=== PATIENT | female | born 1995 | race African-American/Black ===

== ENCOUNTER 2017-11-17 11:55 | Emergency (ER) | payer OTHER ==
--- OUTSIDE RECORDS SUMMARY | 2017-11-17 11:57 | XMS REPORT | Continuity of Care Document ---
:1995 Author Organization Interface Problems Problem Status Onset Classification Date Comments Source Date Reported Routine 10/03/2017 Medical screening for 8 Group STI Vaginal odor 10/03/2017 Medical 8 Group Medications Medication Details Route Status Patient Ordering Order Source Instructions Provider Date Bacitracin 0.4 1 appl, Active UNT/MG / Neomycin TOP, TID, # 018 Medical 0.0035 MG/MG / 10 gm, 0 Group Polymyxin B 5 Refill(s), UNT/MG Topical Pharmacy: Ointment [facility] #[id number] Metronidazole 500 500 mg=1 No Longer MG Oral Tablet tab, PO, Active 018 Medical BID, X 7 Group day, # 14 tab, 0 Refill(s), Pharmacy: [facility] #[id number] Levonorgestrel 52 mg=1 ea, Active 0.578451 MG/HR Intrauteral 018 Medical Drug Implant , ONCE, # 1 Group [Mirena] ea, 0 Refill(s) Allergies, Adverse Reactions, Alerts Substance Category Reaction Severity Reaction Status Date Comments Source type Reported NKDA<sup>1< Assertion Drug Active Data MH /sup> allergy 4 migrated Medical from [employer] on 06/09/15. Originally documented as NKA. Immunizations Immunization Date Given Site Status Last Updated Comments Source Results Order Results Value Reference Date Interpretation Comments Source Name Range Vital Signs Vital Sign Value Date Comments Source Height 166.37 cm 08/10/2017 Medical Group BMI Calculated 21.53 08/10/2017 Medical Group Weight 59.602 08/10/2017 Medical Group Heart Rate 71 08/10/2017 Medical Group Systolic (mm Hg) 109 08/10/2017 Medical Group Diastolic (mm Hg) 75 08/10/2017 Medical Group BMI Calculated 21.51 06/27/2017 Medical Group Height 165.1 cm 06/27/2017 Medical Group Systolic (mm Hg) 111 06/27/2017 Medical Group Diastolic (mm Hg) 73 06/27/2017 Medical Group Heart Rate 64 06/27/2017 Medical Group Weight 58.636 06/27/2017 Medical Group Encounters Location Location Encounter Encounter Reason Attending ADM DC Status Source Details Type Number For Provider Date Date Visit Outpatient [id number] ALEJANDRO 06/27 [facility] Outpatient [id number] Alejandro 06/27 06/28 staff counsel [facility] [place] [facility] [id number] [facility] 08/10 [facility] Outpatient [id number] Mundo 08/10 08/11 [facility] [place] Outpatient [id number] ALEJANDRO 09/07 [facility] Procedures Procedure Code Date Perfomer Comments Source
--- OUTSIDE RECORDS SUMMARY | 2017-11-17 11:57 | XMS REPORT | Summary of Care ---
:1995 Author Organization [facility] Primary [place] Address [address] [place] [address] Encounter HQ Jaguar(FIN) [id number] Date(s): 08/10/17 - 08/10/17 [facility] [place] [address] [place] [address] [phone] Discharge Disposition: Home or Self Care Attending Physician: Mundo Taylor MD Vital Signs Most recent to oldest [Reference Range]: 1 Height 166.37 cm (08/10/17 9:30 AM) Blood Pressure [90-140/60-90 mmHg] 109/75 mmHg (08/10/17 9:30 AM) Peripheral Pulse Rate [60-100 bpm] 71 bpm (08/10/17 9:30 AM) Weight 59.602 kg (08/10/17 9:30 AM) Body Mass Index 21.53 m2 (08/10/17 9:30 AM) Problem List No data available for this section Allergies, Adverse Reactions, Alerts Substance Reaction Severity Status NKDA1 Active 1Data migrated from [employer] on 06/09/15. Originally documented as NKA. Medications bacitracin/neomycin/polymyxin B topical ointment 1 appl, TOP, TID, # 10 gm, 0 Refill(s), Pharmacy: [facility] #[id number] Start Date: 08/10/17 Stop Date: 08/15/17 Status: Ordered Results No data available for this section Immunizations No data available for this section Procedures Procedure Date Related Diagnosis Body Site Status None Completed Social History Social History Type Response Substance Abuse Use: None. Sexual Sexually active: Yes. Self Breast Exam Yes. Alcohol Current Smoking Status Former smoker; Type: Cigarettes; Exposure to Tobacco Smoke None ; Cigarette Smoking Last 365 Days No; Reg Smoking Cessation Counseling No entered on: 08/10/17 Assessment and Plan No data available for this section
--- OUTSIDE RECORDS SUMMARY | 2017-11-17 11:58 | XMS REPORT | Summary of Care ---
:1995 Author Organization [facility] cad specialist [place] Address [address] [address] Encounter HQ Damiánr_dane(FIN) [id number] Date(s): 06/27/17 - 06/27/17 [facility] [place] [address] [address] [phone] Encounter Diagnosis Vaginal odor (Final) - 06/27/17 Encounter for well woman exam (Final) - 06/27/17 Routine screening for STI (sexually transmitted infection) (Final) - 06/27/17 Discharge Disposition: Home or Self Care Attending Physician: Ailyn Auguste MD Vital Signs Most recent to oldest [Reference Range]: 1 Height 165.1 cm (06/27/17 10:39 AM) Blood Pressure [90-140/60-90 mmHg] 111/73 mmHg (06/27/17 10:39 AM) Peripheral Pulse Rate [60-100 bpm] 64 bpm (06/27/17 10:39 AM) Weight 58.636 kg (06/27/17 10:39 AM) Body Mass Index 21.51 m2 (06/27/17 10:39 AM) Problem List No data available for this section Allergies, Adverse Reactions, Alerts Substance Reaction Severity Status NKDA1 Active 1Data migrated from [employer] on 06/09/15. Originally documented as NKA. Medications metroNIDAZOLE 500 mg oral tablet 500 mg=1 tab, PO, BID, X 7 day, # 14 tab, 0 Refill(s), Pharmacy: [facility] #[id number] Start Date: 06/28/17 Stop Date: 07/05/17 Status: CompletedMirena 52 mg intrauteral device 52 mg=1 ea, Intrauteral, ONCE, # 1 ea, 0 Refill(s) Start Date: 06/27/17 Status: Ordered Results No data available for [...]
[2017-11-17] MEDS ORDERED: LIDOCAINE 1% MPF 5 ML VIAL ONE (12:56)
[2017-11-17] MEDS ORDERED: TETANUS & DIPHTHERIA TOX,ADULT 0.5 ML VIAL ONE (13:11)
--- NOTE | 2017-11-17 13:32 | ER ---
Nurse's Notes [facility] Department Name: Shruthi Carter Age: 22 yrs Sex: Female : 1995 Arrival Date: 11/17/2017 Time: 12:00 Bed 14 Private MD: None, None Diagnosis: Laceration without foreign body of finger without damage to nail-Left Index Presentation: 11/17 12:29 Presenting complaint: Patient states: sliced left index finger while removing an dm5 avocado pit about 2.5 hours [employer] [employer]. Bleeding has stopped. Pt had a regular bandage on finger upon arrival to ED. laceration appears clean. Transition of care: patient was not received from another setting of care. Onset of symptoms was November 17, 2017. Risk Assessment: Do you want to hurt yourself or someone else? Patient reports no desire to harm self or others. Initial Sepsis Screen: Does the patient meet any 2 criteria? No. Patient's initial sepsis screen is negative. Does the patient have a suspected source of infection? No. Patient's initial sepsis screen is negative. Care prior to arrival: None. 12:29 Method Of Arrival: Ambulatory dm5 12:29 Acuity: ALLEGRA 4 dm5 Triage Assessment: 12:32 General: Appears in no apparent distress. Behavior is calm, cooperative. Pain: dm5 Complains of pain in palmar aspect of proximal phalanx of left index finger Pain currently is 0 out of 10 on a pain scale. Musculoskeletal: Capillary refill < 3 seconds. Injury Description: Laceration sustained to palmar aspect of proximal phalanx of left index finger is clean, 0.5 to 2.5 cm long, was sustained 2-4 hours ago. no active bleeding noted at this time. Historical: - Allergies: 12:32 No Known Allergies; dm5 - Home Meds: 12:32 None [Active]; dm5 - PMHx: 12:32 None; dm5 - PSHx: 12:32 None; dm5 - Immunization history:: Adult Immunizations up to date. - Social history:: Smoking status: Patient/guardian denies using tobacco. - Ebola Screening: : Patient negative for fever greater than or equal to 101.5 degrees Fahrenheit, and additional compatible Ebola Virus Disease symptoms Patient denies exposure to infectious person Patient denies travel to an Ebola-affected area in the 21 days before illness onset No symptoms or risks identified at this time. Screenin:11 Abuse screen: Denies threats or abuse. Nutritional screening: No deficits noted. em Tuberculosis screening: No symptoms or risk factors identified. Fall Risk None identified. Assessment: 12:40 General: Appears in no apparent distress. comfortable, Behavior is calm, cooperative, em Reports reports cutting finger about an hour ago, no bleeding noted. Pain: Denies pain. Pain:. Neuro: Level of Consciousness is awake, alert, obeys commands, Oriented to person, place, time. Cardiovascular: Capillary refill < 3 seconds Patient's skin is warm and dry. Respiratory: Airway is patent Respiratory effort is even, unlabored, Respiratory pattern is regular, symmetrical. GI: Abdomen is flat. Derm: Wound noted palmar aspect of proximal phalanx of left index finger. Musculoskeletal: Range of motion: intact in all extremities. Injury Description: Laceration sustained to palmar aspect of proximal phalanx of left index finger is clean, 0.5 to 2.5 cm long, not bleeding, was sustained 30-60 minutes ago. 12:50 Reassessment: Patient appears in no apparent distress at this time. I agree with above iw assessment by Vitaly Garg LVN. 13:50 Reassessment: Patient appears in no apparent distress at this time. Patient and/or em family updated on plan of care and expected duration. Pain level reassessed. Patient is alert, oriented x 3, equal unlabored respirations, skin warm/dry/pink. Patient denies pain at this time. Vital Signs: 12:40 BP 117 / 78; Pulse 69; Resp 18; Temp 98.1; Pulse Ox 99% on R/A; Weight 61.23 kg; Height em 5 ft. 7 in. (170.18 cm); Pain 0/10; 12:40 Body Mass Index 21.14 (61.23 kg, 170.18 cm) em ED Course: 12:00 Patient arrived in ED. mr 12:00 None, None is Private Physician. mr 12:21 Steve Rogers MD is Attending Physician. kdr 12:30 Pool Pepe PA is PHCP. cp 12:32 Triage completed. dm5 12:32 Arm band placed on left wrist. Patient placed in an exam room. dm5 12:41 Garg, Vitaly, MIRROR FABRICATION SUPERVISOR is Primary Nurse. em 13:03 Patient has correct armband on for positive identification. Bed in low position. Call 5 light in reach. Adult w/ patient. 13:04 Wound care: to laceration. [facility] 13:30 Assist provider with laceration repair that was 2.5 cm. or less using sutures. Set up em tray. Performed by Pool PEÑA Dressed with 4X4s, Neosporin, Patient tolerated well. 13:30 Patient did not have IV access during this emergency room visit. em Administered Medications: 13:15 Drug: Lidocaine (1 %) 5 ml {Note: administered by MARIANA Lanza.} Volume: 5 ml; Route: em Infiltration; Site: wound; 13:35 Drug: Tetanus-Diphtheria Toxoid Adult 0.5 ml {Train Controller: [employer]. Exp: em 01/04/2020. Lot #: [id number]. } Route: IM; Site: right deltoid; 14:14 Follow up: Response: No adverse reaction em Outcome: 13:32 Discharge ordered by . ramone 14:14 Discharged to home ambulatory, with family. em 14:14 Condition: good 14:14 Discharge instructions given to patient, family, Instructed on discharge instructions, follow up and referral plans. Demonstrated understanding of instructions, follow-up care. 14:15 Patient left the ED. em Signatures: Sandra Fischer, RN RN dm5 Steve Rogers MD MD kdr Rivera, Maria mr Munoz, Edgar, MIRROR FABRICATION SUPERVISOR MIRROR FABRICATION SUPERVISOR em Sammie Goodson RN RN iw Page, Corey, PA PA cp Martinez, Maria Svetlana
--- NOTE | 2017-11-17 13:32 | EDPHYS ---
Physician Documentation [facility] Name: Shruthi Carter Age: 22 yrs Sex: Female : 1995 Arrival Date: 11/17/2017 Time: 12:00 Bed 14 Private MD: None, None ED Physician Steve Rogers HPI: 11/17 12:45 This 22 yrs old Black Female presents to ER via Ambulatory with complaints of Finger cp Injury. 12:45 The patient or guardian reports a laceration, clean, simple. The complaints affect the cp palmar aspect of proximal phalanx of left index finger. 12:45 Context: resulted from using clean kitchen utensil. Onset: The symptoms/episode cp began/occurred just prior to arrival. Associated signs and symptoms: Pertinent negatives: cyanosis distally, numbness distally. Severity of symptoms: in the emergency department the symptoms are unchanged, despite home interventions. Historical: - Allergies: 12:32 No Known Allergies; dm5 - Home Meds: 12:32 None [Active]; dm5 - PMHx: 12:32 None; dm5 - PSHx: 12:32 None; dm5 - Immunization history:: Adult Immunizations up to date. - Social history:: Smoking status: Patient/guardian denies using tobacco. - Ebola Screening: : Patient negative for fever greater than or equal to 101.5 degrees Fahrenheit, and additional compatible Ebola Virus Disease symptoms Patient denies exposure to infectious person Patient denies travel to an Ebola-affected area in the 21 days before illness onset No symptoms or risks identified at this time. ROS: 12:48 Constitutional: Negative for body aches, chills, fever, poor PO intake. cp 12:48 Eyes: Negative for injury, pain, redness, and discharge. cp 12:48 ENT: Negative for drainage from ear(s), ear pain, sore throat, difficulty swallowing, difficulty handling secretions. 12:48 Cardiovascular: Negative for chest pain, palpitations. 12:48 Respiratory: Negative for cough, shortness of breath, wheezing. 12:48 Abdomen/GI: Negative for abdominal pain, nausea, vomiting, and diarrhea. 12:48 Skin: Positive for laceration(s), of the palmar aspect of proximal phalanx of left index finger, Negative for cellulitis, rash. 12:48 Neuro: Negative for numbness, tingling, weakness. 12:48 All other systems are negative. Exam: 12:55 Constitutional: The patient appears in no acute distress, alert, non-toxic, well cp developed, well nourished. 12:55 Head/Face: Normocephalic, atraumatic. cp 12:55 Eyes: Periorbital structures: appear normal, Conjunctiva: normal, no exudate, no injection, Lids and lashes: appear normal, bilaterally. 12:55 ENT: External ear(s): are unremarkable, Nose: is normal, Mouth: is normal, Posterior pharynx: is normal, airway is patent. 12:55 Chest/axilla: Inspection: normal. 12:55 Cardiovascular: Rate: normal, Rhythm: regular. 12:55 Respiratory: the patient does not display signs of respiratory distress, Respirations: normal, no use of accessory muscles, no retractions, no splinting, no tachypnea. 12:55 Abdomen/GI: Exam negative for discomfort, distension, guarding, Inspection: abdomen appears normal. 12:55 Musculoskeletal/extremity: ROM: full active range of motion, left index finger, Perfusion: the extremity is normally perfused throughout, Sensation intact. Tendon exam: specific tendon testing normal through active and passive range of motion 12:55 Skin: cellulitis, is not appreciated, injury, laceration(s), the wound is approximately 2 cm(s), of the palmar aspect of proximal phalanx of left index finger, that can be described as clean, linear, without bleeding, no rash present. Vital Signs: 12:40 BP 117 / 78; Pulse 69; Resp 18; Temp 98.1; Pulse Ox 99% on R/A; Weight 61.23 kg; Height em 5 ft. 7 in. (170.18 cm); Pain 0/10; 12:40 Body Mass Index 21.14 (61.23 kg, 170.18 cm) em Laceration: 13:28 Wound Repair of 2cm ( 0.8in ) subcutaneous laceration to palmar aspect of proximal cp phalanx of left index finger. Linear shaped.. Distal neuro/vascular/tendon intact. Anesthesia: Wound infiltrated with 2 mls of 1% lidocaine. Wound prep: Moderate cleansing by nurse, Wound irrigation with saline. Skin closed with 3 4-0 Prolene using interrupted sutures and sterile technique. Dressed with Bacitracin, tube gauze. Patient tolerated well. MDM: 12:30 Patient medically screened. cp 12:40 Differential diagnosis: open fracture, simple fracture, tendon injury. cp 13:30 Data reviewed: vital signs, nurses notes. cp 13:30 Counseling: I had a detailed discussion with the patient and/or guardian regarding: the cp historical points, exam findings, and any diagnostic results supporting the discharge/admit diagnosis, to return to the emergency department if symptoms worsen or persist or if there are any questions or concerns that arise at home. Response to treatment: the patient's symptoms have markedly improved after treatment, and as a result, I will discharge patient. 11/17 12:37 Order name: Prolene, Sutures; Complete Time: 13:35 cp 11/17 12:37 Order name: Dressing - Wound; Complete Time: 13:35 cp 11/17 12:37 Order name: Gloves, Sterile; Complete Time: 13:35 cp 11/17 12:37 Order name: Setup Suture Tray; Complete Time: 13:35 cp 11/17 12:37 Order name: Wound Care: please clean and irrigate wound; Complete Time: 13:04 cp Administered Medications: 13:15 Drug: Lidocaine (1 %) 5 ml {Note: administered by PA. Pool} Volume: 5 ml; Route: em Infiltration; Site: wound; 13:35 Drug: Tetanus-Diphtheria Toxoid Adult 0.5 ml {Window Draper: [employer]. Exp: em 01/04/2020. Lot #: [id number]. } Route: IM; Site: right deltoid; 14:14 Follow up: Response: No adverse reaction em Disposition: 18:50 Co-signature as Attending Physician, Steve Rogers MD I agree with the assessment and kdr plan of care. Disposition: 11/17/17 13:32 Discharged to Home. Impression: Laceration without foreign body of finger without damage to nail - Left Index. - Condition is Stable. - Discharge Instructions: Laceration Care, Adult. - Medication Reconciliation Form, Thank You Letter, Antibiotic Education, Prescription Opioid Use form. - Follow up: Private Physician; When: 7 - 10 days; Reason: Staple/Suture removal. - Problem is new. - Symptoms have improved. Signatures: Sandra Fischer RN RN dm5 Steve Rogers MD MD kdr Vitaly Garg, MOLDER BENCH MOLDER BENCH em Pool Pepe PA PA cp Corrections: (The following items were deleted from the chart) 14:15 13:32 11/17/2017 13:32 Discharged to Home. Impression: Laceration without foreign body em of finger without damage to nail - Left Index. Condition is Stable. Forms are Medication Reconciliation Form, Thank You Letter, Antibiotic Education, Prescription Opioid Use. Follow up: Private Physician; When: 7 - 10 days; Reason: Staple/Suture removal. Problem is new. Symptoms have improved. cp
== END 2017-11-17 14:15 | disposition home or self-care (01) ==
LOC: ER 11:55
PROC: 0JQK0ZZ Repair Left Hand Subcutaneous Tissue and Fascia, Open Approach (ICD-10-PCS; principal; 2017-11-17)
DX: S61.311A Laceration without foreign body of left index finger with damage to nail, initial encounter (principal); Z23 Encounter for immunization; W45.8XXA Other foreign body or object entering through skin, initial encounter; Y93.9 Activity, unspecified; Y92.89 Other specified places as the place of occurrence of the external cause
CPT/HCPCS: 90714; 99283

== ENCOUNTER 2018-02-07 10:40 | Emergency (ER) | payer OTHER ==
--- OUTSIDE RECORDS SUMMARY | 2018-02-07 10:41 | XMS REPORT | Continuity of Care Document ---
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
--- NOTE | 2018-02-07 13:19 | RAD REPORT ---
EXAM DESCRIPTION: RAD - Hand Left 3 View - 02/07/2018 12:53 pm CLINICAL HISTORY: PAIN COMPARISON: No comparisons FINDINGS: No fracture or dislocation is seen. Mild soft tissue swelling is evident.
--- NOTE | 2018-02-07 13:41 | EDPHYS ---
Physician Documentation [facility] Name: Shruthi Carter Age: 22 yrs Sex: Female : 1995 Arrival Date: 02/07/2018 Time: 10:42 Bed 12 Private MD: ED Physician Steve Rogers HPI: 02/07 13:37 This 22 yrs old Black Female presents to ER via Ambulatory with complaints of Finger kb Injury. 13:37 The patient or guardian reports decreased range of motion, injury, pain. The complaints kb affect the left index finger. Context: The problem was sustained at work, resulted from a crush injury. Onset: The symptoms/episode began/occurred just prior to arrival. Modifying factors: The symptoms are alleviated by nothing, the symptoms are aggravated by nothing. Associated signs and symptoms: The patient has no apparent associated signs or symptoms. Severity of symptoms: At their worst the symptoms were moderate, in the emergency department the symptoms are unchanged. The patient has not experienced similar symptoms in the past. The patient has not recently seen a physician. Historical: - Allergies: 11:23 No Known Allergies; aj1 - PMHx: 11:23 None; aj1 - Immunization history:: Adult Immunizations up to date. - Social history:: Smoking status: Patient/guardian denies using tobacco. - Ebola Screening: : No symptoms or risks identified at this time. ROS: 13:37 Constitutional: Negative for fever, chills, and weight loss, Cardiovascular: Negative kb for chest pain, palpitations, and edema, Respiratory: Negative for shortness of breath, cough, wheezing, and pleuritic chest pain, Abdomen/GI: Negative for abdominal pain, nausea, vomiting, diarrhea, and constipation, Skin: Negative for injury, rash, and discoloration, Neuro: Negative for headache, weakness, numbness, tingling, and seizure. 13:37 MS/extremity: Positive for injury or acute deformity, decreased range of motion, pain, of the left index finger. Exam: 13:37 Constitutional: This is a well developed, well nourished patient who is awake, alert, kb and in no acute distress. Head/Face: Normocephalic, atraumatic. Chest/axilla: Normal chest wall appearance and motion. Nontender with no deformity. No lesions are appreciated. Cardiovascular: Regular rate and rhythm with a normal S1 and S2. No gallops, murmurs, or rubs. Normal PMI, no JVD. No pulse deficits. Respiratory: Lungs have equal breath sounds bilaterally, clear to auscultation and percussion. No rales, rhonchi or wheezes noted. No increased work of breathing, no retractions or nasal flaring. Abdomen/GI: Soft, non-tender, with normal bowel sounds. No distension or tympany. No guarding or rebound. No evidence of tenderness throughout. Neuro: Awake and alert, GCS 15, oriented to person, place, time, and situation. Cranial nerves II-XII grossly intact. Motor strength 5/5 in all extremities. Sensory grossly intact. Cerebellar exam normal. Normal gait. 13:37 Musculoskeletal/extremity: Extremities: grossly normal except: noted in the dorsal aspect of middle phalanx of left index finger: abrasion, noted in the left index finger: decreased ROM, pain, ROM: limited active range of motion, in the left index finger, limited active range of motion due to pain, in the left index finger, Circulation is intact in all extremities. Sensation intact. Vital Signs: 11:23 BP 113 / 68; Pulse 65; Resp 18; Temp 97.7; Pulse Ox 100% on R/A; Weight 58.97 kg (R); aj1 Height 5 ft. 7 in. (170.18 cm) (R); Pain 4/10; 11:23 Body Mass Index 20.36 (58.97 kg, 170.18 cm) aj1 MDM: 12:35 Patient medically screened. kb 13:21 Data reviewed: vital signs, nurses notes. Data interpreted: Pulse oximetry: on room air kb is 100 %. Interpretation: normal. Counseling: I had a detailed discussion with the patient and/or guardian regarding: the historical points, exam findings, and any diagnostic results supporting the discharge/admit diagnosis, radiology results, the need for outpatient follow up, a orthopedic surgeon, to return to the emergency department if symptoms worsen or persist or if there are any questions or concerns that arise at home. 02/07 12:26 Order name: Hand Left 3 View XRAY; Complete Time: 13:21 kb 02/07 13:21 Order name: Finger Splint; Complete Time: 13:56 kb Administered Medications: No medications were administered Disposition: 02/07/18 13:39 Discharged to Home. Impression: Pain in left finger(s). - Condition is Stable. - Discharge Instructions: Hand Contusion, [id number]. - Medication Reconciliation Form, Thank You Letter, Antibiotic Education, Prescription Opioid Use form. - Follow up: Emergency Department; When: As needed; Reason: Worsening of condition. Follow up: Private Physician; When: 2 - 3 days; Reason: Recheck today's complaints, Continuance of care, Re-evaluation by your physician. Addendum: 02/17/2018 08:04 Co-signature as Attending Physician, Steve Rogers MD I agree with the assessment and k dr plan of care. Signatures: Dispatcher [employer] EDMS Yumiko Liu, WINDOWS SOFTWARE DEVELOPER-C WINDOWS SOFTWARE DEVELOPER-Ckb Kari Noyola, RN RN aj1 Steve Rogers MD MD [facility] Yanet Sanz RN RN hb Corrections: (The following items were deleted from the chart) 02/07 13:57 13:39 02/07/2018 13:39 Discharged to Home. Impression: Pain in left finger(s). hb Condition is Stable. Forms are Medication Reconciliation Form, Thank You Letter, Antibiotic Education, Prescription Opioid Use. Follow up: Emergency Department; When: As needed; Reason: Worsening of condition. Follow up: Private Physician; When: 2 - 3 days; Reason: Recheck today's complaints, Continuance of care, Re-evaluation by your physician. kb
--- NOTE | 2018-02-07 13:41 | ER ---
Nurse's Notes [facility] Name: Shruthi Carter Age: 22 yrs Sex: Female : 1995 Arrival Date: 02/07/2018 Time: 10:42 Bed 12 Private MD: Diagnosis: Pain in left finger(s) Presentation: 02/07 11:21 Presenting complaint: Patient states: "I think I broke my finger. I dropped a metal aj1 fixture from work on it and now I can't bend it" Reports pain and limited ROM to left index finger. Redness and swelling noted to left index finger. Transition of care: patient was not received from another setting of care. Onset of symptoms was February 07, 2018 at 09:30. Risk Assessment: Do you want to hurt yourself or someone else? Patient reports no desire to harm self or others. Initial Sepsis Screen: Does the patient meet any 2 criteria? No. Patient's initial sepsis screen is negative. Does the patient have a suspected source of infection? Yes: Skin breakdown/wound. Care prior to arrival: None. 11:21 Method Of Arrival: Amb[facility] 11:21 Acuity: ALLEGRA 4 aj1 Triage Assessment: 11:23 General: Appears in no apparent distress. comfortable, Behavior is calm, cooperative, aj1 appropriate for age. Pain: Pain currently is 4 out of 10 on a pain scale. Neuro: Level of Consciousness is awake, alert, obeys commands. Cardiovascular: Patient's skin is warm and dry. Respiratory: Airway is patent Respiratory effort is even, unlabored, Respiratory pattern is regular, symmetrical. Musculoskeletal: Range of motion: limited in DIP of left index finger, PIP of left index finger and MCP of left index finger. Injury Description: dropped a metal fixture on her finger. Historical: - Allergies: 11:23 No Known Allergies; aj1 - PMHx: 11:23 None; aj1 - Immunization history:: Adult Immunizations up to date. - Social history:: Smoking status: Patient/guardian denies using tobacco. - Ebola Screening: : No symptoms or risks identified at this time. Screenin:52 Abuse screen: Denies threats or abuse. Denies injuries from another. Nutritional hb screening: No deficits noted. Tuberculosis screening: No symptoms or risk factors identified. Fall Risk None identified. Assessment: 12:53 General: Appears in no apparent distress. Behavior is calm, cooperative. Pain: Pain hb currently is 4 out of 10 on a pain scale. Neuro: Level of Consciousness is awake, alert, obeys commands, Oriented to person, place, time, situation. Cardiovascular: Capillary refill < 3 seconds Patient's skin is warm and dry. Respiratory: Airway is patent Respiratory effort is even, unlabored, Respiratory pattern is regular, symmetrical. GI: No signs and/or symptoms were reported involving the gastrointestinal system. : No signs and/or symptoms were reported regarding the genitourinary system. EENT: No signs and/or symptoms were reported regarding the EENT system. Derm: Skin is intact, is healthy with good turgor. Musculoskeletal: Reports pain in index finger. Vital Signs: 11:23 BP 113 / 68; Pulse 65; Resp 18; Temp 97.7; Pulse Ox 100% on R/A; Weight 58.97 kg (R); aj1 Height 5 ft. 7 in. (170.18 cm) (R); Pain 4/10; 11:23 Body Mass Index 20.36 (58.97 kg, 170.18 cm) aj1 ED Course: 10:42 Patient arrived in ED. as 11:23 Triage completed. aj1 11:23 Arm band placed on Patient placed in waiting room, Patient notified of wait time. aj1 12:00 Patient has correct armband on for positive identification. hb 12:27 Yumiko Liu FNP-C is PHCP. kb 12:27 Steve Rogers MD is Attending Physician. kb 12:42 X-ray completed. Portable x-ray completed in exam room. Patient tolerated procedure jb2 well. 12:53 Hand Left 3 View XRAY In Process Unspecified. EDMS 13:56 No provider procedures requiring assistance completed. Patient did not have IV access hb during this emergency room visit. Administered Medications: No medications were administered Outcome: 13:39 Discharge ordered by . kb 13:56 Discharged to home ambulatory. hb 13:56 Condition: stable 13:56 Discharge instructions given to patient, Instructed on discharge instructions, follow up and referral plans. medication usage, Demonstrated understanding of instructions, follow-up care, medications. 13:57 Patient left the ED. hb Signatures: Dispatcher [employer] EDMS Yumiko Liu FNP-C FNP-Ckb Johnson, Angela RN RN aj1 Je, Maranda Rodriguez Heather, RN RN hb
== END 2018-02-07 13:57 | disposition home or self-care (01) ==
LOC: ER 10:40
DX: M79.645 Pain in left finger(s) (principal)
CPT/HCPCS: 99283

== ENCOUNTER 2020-03-24 07:24 | Emergency (ER) | payer OTHER ==
--- OUTSIDE RECORDS SUMMARY | 2020-03-24 08:11 | XMS REPORT | Continuity of Care Document ---
:1995 Author Organization [facility] [employer] Care Team Providers Name Role Phone [facility] Unavailable Un available Problems Problem Status Onset Classification Date Comments Sourc e Date Reported Anorexia 02/01/20 08/20/2018 Medica l 18 Group Other specified 02/01/20 08/20/2018 Medical noninflammatory 18 Grou p disorders of vagina Encounter for 02/01/20 08/20/2018 [facility] dical routine checking of 18 Group intrauterine contraceptive device Encounter for 06/28/19 10/03/2017 Me dical screening for 18 Group infections with a predominantly sexual mode of transmission Encounter for 06/28/19 10/03/2017 [facility] dical gynecological 18 Group examination (general) (routine) without abnormal findings Medications Medication Details Route Status Patient Ordering Order Source Instructions Provider Date propranolol 10 mg 10 mg = 1 Active MH oral tablet tab, PO, 020 Medical BID, # 60 Group tab, 0 Refill(s), Pharmacy: [facility][id number] Hydroxyzine 25 mg = 1 Active MH Hydrochloride 25 tab, PO, 019 Medica l MG Oral Tablet QID, PRN Group Anxiety, # 30 tab, 2 Refill(s), Pharmacy: [facility] #[id number] Hydroxyzine 25 mg = 1 Inactive MH Hydrochloride 25 tab, PO, 019 Medica l MG Oral Tablet QID, PRN Group Anxiety, # 40 tab, 0 Refill(s) Hydroxyzine 25 mg = 1 Active MH Hydrochloride 25 tab, PO, 019 Medica l MG Oral Tablet QID, PRN Group Anxiety, X 10 day, # 40 tab, 0 Refill(s), Pharmacy: [facility] #[id number] Metronidazole 1 appl, No Longer 0.0075 MG/MG VAG, Active 018 Medical Vaginal Gel Bedtime, X Group [MetroGel] 14 day, # 70 gm, 2 Refill(s), Pharmacy: [facility] #[id number] Probiotic Formula 1 cap, PO, Active oral capsule Daily, 0 018 Medical Refill(s) Group Bacitracin 0.4 1 appl, Active MH UNT/MG / Neomycin TOP, TID, # 018 Me dical 0.0035 MG/MG / 10 gm, 0 Group Polymyxin B 5 Refill(s), UNT/MG Topical Pharmacy: Ointment [facility] #[id number] Metronidazole 500 500 mg = 1 No Longer M H MG Oral Tablet tab, PO, Active 018 Medical BID, X 7 Group day, # 14 tab, 0 Refill(s), Pharmacy: [facility] #[id number] Levonorgestrel 52 mg = 1 Active 0.872010 MG/HR ea, 018 Medical Drug Implant Intrauteral Group [Mirena] , ONCE, # 1 ea, 0 Refill(s) Allergies, Adverse Reactions, Alerts Substance Category Reaction Severity Reaction Status Date Comments S ource type Reported No Known Assertion Drug Medication allergy Medic al Allergies Group Immunizations No Data Provided for This Section Results No Data Provided for This Section Pathology Reports No Data Provided for This Section Diagnostic Reports No Data Provided for This Section Consultation Notes No Data Provided for This Section Discharge Summaries No Data Provided for This Section History and Physicals No Data Provided for This Section Vital Signs Vital Sign Value Date Comments Source Systolic (mm Hg) 116 09/24/2019 Medical Group Diastolic (mm Hg) 76 09/24/2019 Medical Group Heart Rate 101 09/24/2019 Medical Grou p Respitory Rate 12 09/24/2019 Medical Gr oup Temperature Oral (F) 98.2 F 09/24/2019 [facility]i [facility] Height 170.18 cm 09/24/2019 Medical Grou p Weight 65.966 09/24/2019 Medical Grou p BMI Calculated 22.78 09/24/2019 Medical Gr oup Systolic (mm Hg) 113 01/07/2019 Medical Group Diastolic (mm Hg) 69 01/07/2019 Medical Group Heart Rate 81 01/07/2019 Medical Grou p Height 165.1 cm 01/07/2019 Medical Grou p Weight 58.636 01/07/2019 Medical Grou p BMI Calculated 21.51 01/07/2019 Medical Gr oup Systolic (mm Hg) 113 10/17/2018 Medical Group Diastolic (mm Hg) 75 10/17/2018 Medical Group Temperature Oral (F) 97.6 F 10/17/2018 Medi tomas Group Heart Rate 61 10/17/2018 Medical Grou p BMI Calculated 21.68 10/17/2018 Medical Gr oup Height 165.1 cm 10/17/2018 Medical Grou p Weight 59.091 10/17/2018 Medical Grou p BMI Calculated 21.6 01/31/2018 Medical Gr oup Weight 58.864 01/31/2018 Medical Grou p Height 165.1 cm 01/31/2018 Medical Grou p Systolic (mm Hg) 121 01/31/2018 Medical Group Diastolic (mm Hg) 86 01/31/2018 Medical Group Heart Rate 71 01/31/2018 Medical Grou p Height 166.37 cm 08/10/2017 Medical Grou p BMI Calculated 21.53 08/10/2017 Medical Gr oup Weight 59.602 08/10/2017 Medical Grou p Heart Rate 71 08/10/2017 Medical Grou p Systolic (mm Hg) 109 08/10/2017 Medical Group Diastolic (mm Hg) 75 08/10/2017 Medical Group BMI Calculated 21.51 06/27/2017 Medical Gr oup Height 165.1 cm 06/27/2017 Medical Grou p Systolic (mm Hg) 111 06/27/2017 Medical Group Diastolic (mm Hg) 73 06/27/2017 Medical Group Heart Rate 64 06/27/2017 Medical Grou p Weight 58.636 06/27/2017 Medical Grou p Encounters Location Location Encounter Encounter Reason Attending ADM [place] Stat us Source Details Type Number For Provider Date Date Visit Outpatient [id number] TATA-ELISA 06/27 Act gris [facility] Outpatient [id number] 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 [facility] Outpatient [id number] MUNDO 08/10 [facility] [id number] Mundo 08/10 08/11 [facility] [place] Outpatient [id number] [facility] [id number] [id number] Tata-Elisa 01/31 02/01 CHARGE AUTHORIZER [facility] /2017 [facility] Outpatient [id number] MUNDO 04/20 Active [facility] Ambulatory [id number] Mundo 04/20 04/20 Primary Pre-Reg [facility] [place] Outpatient [id number] Vincent 10/17 Active [facility] Outpatient [id number] Vincent 10/17 10/18 Primary [facility] [place] Outpatient [id number] Vincent 11/07 Active [facility] [id number] Vincent 11/16 11/16 Primary Pre-Reg [facility] [place] Outpatient [id number] Vincent 01/07 Active [facility] Outpatient [id number] Vincent 01/07 01/08 Primary [facility] [place] Outpatient [id number] Vincent 02/18 Active [facility] [id number] Vincent 02/18 02/18 Primary Pre-Reg [facility] [place] Outpatient [id number] Vincent 09/23 Active [facility] Outpatient [id number] Vincent 09/23 09/24 Primary [facility] [place] Procedures No Data Provided for This Section Assessment and Plan No Data Provided for This Section Plan of Care No Data Provided for This Section Social History Social History Date Source Social History TypeResponse 06/27/2017 [facility] Alcohol Current Sexual Sexually active: Yes. Self Breast Exam Yes. Substance Abuse Use: None. Smoking Status Current some day smoker; Type: Cigarette s; Exposure to Tobacco Smoke None; Cigarette Smoking Last 365 Days Yes; Reg Smoking Cessation Counseling No entered on: 09/24/19 Family History No Data Provided for This Section Advance Directives No Data Provided for This Section Functional Status No Data Provided for This Section
[2020-03-24] MEDS ORDERED: ONDANSETRON 4 MG/2 ML VIAL ONE (08:12)
[2020-03-24] MEDS ORDERED: MORPHINE 4 MG/ML SYR ONE (08:12)
[2020-03-24] MEDS ORDERED: CEFTRIAXONE/SWI 1gm 1 GM/10 ML SYR ONE (08:12)
[2020-03-24] MEDS ORDERED: NA CHLORIDE 0.9% 1,000 ML ONE (08:12)
--- NOTE | 2020-03-24 08:53 | RAD REPORT ---
EXAM DESCRIPTION: CT - Stone Protocol - 03/24/2020 8:43 am CLINICAL HISTORY: Abdominal pain. COMPARISON: None. TECHNIQUE: Computed axial tomography of the abdomen pelvis was obtained without oral or IV contrast. Lack of IV and oral contrast limits evaluation of solid organs, bowel, and vessels. Coronal reformat chritso images were obtained and reviewed. All CT scans are performed using dose optimization technique as appropriate and may include automated exposure control or mA/KV adjustment according to patient size. FINDINGS: A renal calculus is not seen. An ureteral calculus is not noted. A bladder calculus is not present. Bilateral extrarenal pelves. Portions of ureters are not well visualized. The ureters are n ot dilated. 2 millimeter calcification within the left lateral pelvis probably a phlebolith. The liver, spleen, pancreas and adrenals appear grossly normal There is no evidence of diverticulitis. The appendix appears normal A 4 centimeter right ovarian cyst without significant free fluid. An IUD in good position IMPRESSION: Negative for a genitourinary calculus 4 centimeter right ovarian cyst without significant free fluid
[2020-03-24 09:15] LABS: Absolute Lymphocytes (CBC) 2.1 K/uL (0.7-4.9); Basophils % 0.7 % (0-1.3); Hematocrit 39.3 % (36.0-45.0); Lymphocytes % 16.2 % (15.3-44.8); MPV 10.2 fL (7.6-11.3); RBC Red Blood Cell Count 4.52 M/uL (3.86-4.86)
[2020-03-24 09:26] LABS: ALT/SGPT 31 U/L (12-78); AST/SGOT 23 U/L (15-37); Albumin 3.6 g/dL (3.4-5.0); Alkaline Phosphatase 49 U/L (45-117); BUN Blood Urea Nitrogen 19 mg/dL (7-18); Bicarbonate 25 mmol/L (21-32); Bilirubin Direct < 0.1 mg/dL (0-0.2); Bilirubin Total 0.6 mg/dL (0.2-1.0); Glucose Level 115 mg/dL (74-106); Lipase 97 U/L (73-393); Potassium 3.7 mmol/L (3.5-5.1); Protein, Total 8.1 g/dL (6.4-8.2); Sodium Level 141 mmol/L (136-145)
[2020-03-24] MEDS ORDERED: PROMETHAZINE INJ 25 MG/ML AMP ONE (10:18)
[2020-03-24] MEDS ORDERED: HYDROMORPHONE HCL 1 MG/ML INJ ONE (10:19)
--- NOTE | 2020-03-24 11:06 | ER ---
Nurse's Notes [facility] Name: Shruthi Carter Age: 24 yrs Sex: Female : 1995 Arrival Date: 03/24/2020 Time: 07:25 Bed 20 Private MD: Diagnosis: Cystitis, unspecified without hematuria-with left pyelonephritis Presentation: 03/24 07:35 Chief complaint: Patient states: LLQ PAIN WITH N/V SINCE WAKING. Coronavirus screen: At bp this time, the client does not indicate any symptoms associated with coronavirus-19. Ebola Screen: No symptoms or risks identified at this time. Initial Sepsis Screen: Does the patient meet any 2 criteria? No. Patient's initial sepsis screen is negative. Does the patient have a suspected source of infection? No. Patient's initial sepsis screen is negative. Risk Assessment: Do you want to hurt yourself or someone else? Patient reports no desire to harm self or others. Onset of symptoms was March 24, 2020. 07:35 Method Of Arrival: Wheelchair bp 07:35 Acuity: ALLEGRA 3 bp Triage Assessment: 07:37 General: Appears distressed, uncomfortable, Behavior is cooperative, appropriate for bp age, anxious. Pain: Complains of pain in left lower quadrant. EENT: No deficits noted. Neuro: No deficits noted. Cardiovascular: No deficits noted. Respiratory: No deficits noted. GI: Abdomen is non-distended, Reports lower abdominal pain, nausea, vomiting. : Reports burning with urination. Derm: No deficits noted. Musculoskeletal: No deficits noted. 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 - Social history:: Smoking status: Patient denies any tobacco usage or history of. Screenin:35 Abuse screen: Denies threats or abuse. Denies injuries from another. Nutritional bp screening: No deficits noted. Tuberculosis screening: No symptoms or risk factors identified. Fall Risk None identified. Assessment: 07:35 General: SEE TRIAGE NOTE. bp 08:59 Reassessment: Patient and/or family updated on plan of care and expected duration. Pain bp level reassessed. Patient is alert, oriented x 3, equal unlabored respirations, skin warm/dry/pink. PT RETURNED FROM CT. ALL CURRENT ORDERS COMPLETED Patient states symptoms have improved. 10:00 Reassessment: Patient appears in no apparent distress at this time. Patient and/or bp family updated on plan of care and expected duration. Pain level reassessed. Patient is alert, oriented x 3, equal unlabored respirations, skin warm/dry/pink. IVF INFUSING, DISPO PENDING. 11:20 Reassessment: PT D/C HOME AMBULATORY WITH FAMILY, DX WITH CYSTITIS. bp Vital Signs: 07:35 BP 129 / 86; Pulse 76; Resp 16; Temp 97.3; Pulse Ox 100% ; bp 08:59 Pulse 56; Resp 15; Pulse Ox 100% ; bp 10:00 BP 102 / 63; Pulse 51; Resp 16; Pulse Ox 98% ; bp 11:21 BP 104 / 66; Pulse 49; Resp 16; Temp 97.5; Pulse Ox 98% ; bp ED Course: 07:25 Patient arrived in ED. bp1 07:32 Maya Mohamud MD is Attending Physician. ma2 07:35 Neal Dave, RN is Primary Nurse. bp 07:35 Patient has correct armband on for positive identification. Bed in low position. Call bp light in reach. Side rails up X2. Adult w/ patient. 07:36 Triage completed. bp 07:37 Arm band placed on. bp 08:10 Inserted saline lock: 20 gauge in right antecubital area, using aseptic technique. bp Blood collected. 11:21 No provider procedures requiring assistance completed. IV discontinued, intact, bp bleeding controlled, No redness/swelling at site. Pressure dressing applied. Administered Medications: 08:10 Drug: NS 0.9% 1000 ml Route: IV; Rate: 1000 ml; Site: right antecubital; bp 11:23 Follow up: IV Status: Completed infusion bp 08:10 Drug: Zofran (Ondansetron) 4 mg Route: IVP; Site: right antecubital; bp 10:18 Follow up: Response: No adverse reaction bp 08:10 Drug: morphine 4 mg Route: IVP; Site: right antecubital; bp 10:18 Follow up: Response: Pain is decreased bp 08:10 Drug: Rocephin 1 grams Route: IV; Rate: calculated rate; Site: right antecubital; bp 11:23 Follow up: IV Status: Completed infusion; IV Intake: 50ml bp 10:05 Drug: Dilaudid 1 mg Route: IVP; Site: right antecubital; bp 11:22 Follow up: Response: Pain is decreased bp 10:05 Drug: Phenergan 25 mg Route: IVP; Site: right antecubital; bp 11:22 Follow up: Response: Nausea is decreased bp Intake: 11:23 IV: 50ml; Total: 50ml. bp Outcome: 11:05 Discharge ordered by . akilah 11:22 Discharged to home ambulatory, with family. bp 11:22 Condition: stable 11:22 Discharge instructions given to patient, Instructed on discharge instructions, follow up and referral plans. medication usage, Demonstrated understanding of instructions, follow-up care, medications, Prescriptions given X 3. 11:23 Patient left the ED. bp Addendum: 03/28/2020 10:53 Addendum: Culture Results: Positive urine culture. Bacteria is resistant to, has a a5 intermediate sensitivity, or is not tested against prescribed antibiotics. 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 Prescription called-in to pharmacy of choice. to [facility] in [place], [place] per pt's request. Called in Suprax 200mg PO BID x 10 days per MARIANA De Jesus. Signatures: Kathy Leonard RN RN aa5 Neal Dave RN RN bp Maya Mohamud MD MD ma2 Melinda Chicas bp1
--- NOTE | 2020-03-24 11:06 | EDPHYS ---
Physician Documentation [facility] Name: Shruthi Carter Age: 24 yrs Sex: Female : 1995 Arrival Date: 03/24/2020 Time: 07:25 Bed 20 Private MD: ED Physician Maya Mohamud HPI: 03/24 07:50 This 24 yrs old Black Female presents to ER via Wheelchair with complaints of Abdominal ma2 Pain, Nausea/Vomiting. 07:50 The patient presents to the emergency department with nausea, vomiting. Onset: The ma2 symptoms/episode began/occurred suddenly, 1 day(s) ago. Associated signs and symptoms: Pertinent negatives: belching, diarrhea, flatulence. Severity of symptoms: At their worst the symptoms were moderate in the emergency department the symptoms are unchanged. The patient has not experienced similar symptoms in the past. 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 - Social history:: Smoking status: Patient denies any tobacco usage or history of. ROS: 07:50 Constitutional: Negative for fever, chills, and weight loss. ma2 07:50 All other systems are negative. Exam: 07:50 Constitutional: This is a well developed, well nourished patient who is awake, alert, ma2 and in no acute distress. Head/Face: Normocephalic, atraumatic. Eyes: Pupils equal round and reactive to light, extra-ocular motions intact. Lids and lashes normal. Conjunctiva and sclera are non-icteric and not injected. Cornea within normal limits. Periorbital areas with no swelling, redness, or edema. ENT: Nares patent. No nasal discharge, no septal abnormalities noted. Tympanic membranes are normal and external auditory canals are clear. Oropharynx with no redness, swelling, or masses, exudates, or evidence of obstruction, uvula midline. Mucous membranes moist. Neck: Trachea midline, no thyromegaly or masses palpated, and no cervical lymphadenopathy. Supple, full range of motion without nuchal rigidity, or vertebral point tenderness. No Meningismus. Chest/axilla: Normal chest wall appearance and motion. Nontender with no deformity. No lesions are appreciated. Cardiovascular: Regular rate and rhythm with a normal S1 and S2. No gallops, murmurs, or rubs. Normal PMI, no JVD. No pulse deficits. Respiratory: Lungs have equal breath sounds bilaterally, clear to auscultation and percussion. No rales, rhonchi or wheezes noted. No increased work of breathing, no retractions or nasal flaring. Abdomen/GI: Soft, non-tender, with normal bowel sounds. No distension or tympany. No guarding or rebound. No evidence of tenderness throughout. Skin: Warm, dry with normal turgor. Normal color with no rashes, no lesions, and no evidence of cellulitis. MS/ Extremity: Pulses equal, no cyanosis. Neurovascular intact. Full, normal range of motion. Neuro: Awake and alert, GCS 15, oriented to person, place, time, and situation. Cranial nerves II-XII grossly intact. Motor strength 5/5 in all extremities. Sensory grossly intact. Cerebellar exam normal. Normal gait. Vital Signs: 07:35 BP 129 / 86; Pulse 76; Resp 16; Temp 97.3; Pulse Ox 100% ; bp 08:59 Pulse 56; Resp 15; Pulse Ox 100% ; bp 10:00 BP 102 / 63; Pulse 51; Resp 16; Pulse Ox 98% ; bp 11:21 BP 104 / 66; Pulse 49; Resp 16; Temp 97.5; Pulse Ox 98% ; bp MDM: 07:32 Patient medically screened. [facility] 07:50 Differential diagnosis: Nonspecific abd pain, gastritis, viral gastroenteritis, ma2 gastroenteritis. 11:04 Data reviewed: vital signs, nurses notes. Counseling: I had a detailed discussion with ma2 the patient and/or guardian regarding: the historical points, exam findings, and any diagnostic results supporting the discharge/admit diagnosis, the presence of at least one elevated blood pressure reading (>120/80) during this emergency department visit, the need for outpatient follow up. Response to treatment: the patient's symptoms have markedly improved after treatment. 03/24 07:46 Order name: Urine Microscopic Only ma2 03/24 08:03 Order name: Urine Dipstick--Ancillary (enter results) bd 03/24 08:03 Order name: Urine --Ancillary (enter results) bd 03/24 09:23 Order name: CBC with Automated Diff; Complete Time: 09:59 EDMS 03/24 09:26 Order name: Basic Metabolic Panel; Complete Time: 09:59 EDMS 03/24 09:26 Order name: Liver (Hepatic) Function; Complete Time: 09:59 EDMS 03/24 09:26 Order name: Lipase; Complete Time: 09:59 EDMS 03/24 09:46 Order name: Basic Metabolic Panel EDMS 03/24 09:46 Order name: Liver (Hepatic) Function EDMS 03/24 09:46 Order name: Lipase EDMS 03/24 07:46 Order name: Urine Test (obtain specimen); Complete Time: 07:52 ma2 03/24 07:46 Order name: IV Saline Lock; Complete Time: 08:17 ma2 03/24 07:46 Order name: NPO; Complete Time: 08:17 ma2 08 07:46 Order name: Urine Dipstick-Ancillary (obtain specimen); Complete Time: 07:52 ma2 03/24 08:54 Order name: CT; Complete Time: 09:59 EDMS Administered Medications: 08:10 Drug: NS 0.9% 1000 ml Route: IV; Rate: 1000 ml; Site: right antecubital; bp 11:23 Follow up: IV Status: Completed infusion bp 08:10 Drug: Zofran (Ondansetron) 4 mg Route: IVP; Site: right antecubital; bp 10:18 Follow up: Response: No adverse reaction bp 08:10 Drug: morphine 4 mg Route: IVP; Site: right antecubital; bp 10:18 Follow up: Response: Pain is decreased bp 08:10 Drug: Rocephin 1 grams Route: IV; Rate: calculated rate; Site: right antecubital; bp 11:23 Follow up: IV Status: Completed infusion; IV Intake: 50ml bp 10:05 Drug: Dilaudid 1 mg Route: IVP; Site: right antecubital; bp 11:22 Follow up: Response: Pain is decreased bp 10:05 Drug: Phenergan 25 mg Route: IVP; Site: right antecubital; bp 11:22 Follow up: Response: Nausea is decreased bp Disposition: 03/24/20 11:05 Discharged to Home. Impression: Cystitis, unspecified without hematuria - with left pyelonephritis. - Condition is Stable. - Discharge Instructions: Urinary Tract Infection, Adult, [id number]. - Prescriptions for Zofran 4 mg Oral Tablet - take 1 tablet by ORAL route every 12 hours As needed; 20 tablet. Diclofenac Sodium 75 mg Oral Tablet Sustained Release - take 1 tablet by ORAL route 2 times per day; 30 tablet. Bactrim DS 800- 160 mg Oral Tablet - take 1 tablet by ORAL route every 12 hours for 7 days; 14 tablet. - Medication Reconciliation Form, Thank You Letter, Antibiotic Education, Prescription Opioid Use form. - Follow up: Private Physician; When: Tomorrow; Reason: If symptoms return, Continuance of care. Signatures: Dispatcher [employer] Neal Parada RN RN bp Alzahri, Mohammad, MD MD ma2 Corrections: (The following items were deleted from the chart) 11:23 11:05 03/24/2020 11:05 Discharged to Home. Impression: Cystitis, unspecified without bp hematuria - with left pyelonephritis. Condition is Stable. Prescriptions for Zofran 4 mg Oral Tablet - take 1 tablet by ORAL route every 12 hours As needed; 20 tablet, Diclofenac Sodium 75 mg Oral Tablet Sustained Release - take 1 tablet by ORAL route 2 times per day; 30 tablet, Bactrim DS 800-160 mg Oral Tablet - take 1 tablet by ORAL route every 12 hours for 7 days; 14 tablet. and Forms are Medication Reconciliation Form, Thank You Letter, Antibiotic Education, Prescription Opioid Use. Follow up: Private Physician; When: Tomorrow; Reason: If symptoms return, Continuance of care. ma2
[2020-03-24 13:33] LABS: Urine Blood 2+ (NEG); Urine Glucose NEGATIVE (NEG); Urine Protein 2+ (NEG); Urine pH 8.5 (5.0-7.0)
[2020-03-24 15:03] LABS: Urine Bacteria 20-50 /HPF (<20); Urine Mucus 2+ /HPF (NONE SEEN); Urine RBC 20-50 /HPF (NONE SEEN)
== END 2020-03-24 11:23 | disposition home or self-care (01) ==
LOC: ER 07:24
DX: N30.90 Cystitis, unspecified without hematuria (principal); N12 Tubulo-interstitial nephritis, not specified as acute or chronic; F41.9 Anxiety disorder, unspecified
CPT/HCPCS: 87088; 85025; 87086; 80048; 36415; 81025; 80076; 83690; 76377; 74176; J2550; J1170; J0696; J7030; J2405; 81003; 81015; 87077; 87186; 96365; 96366; 96375; 99284